=== PATIENT | male | born 1990 | race Caucasian/White ===

== ENCOUNTER 2017-06-17 18:21 | Emergency (ER) | payer MEDICAID ==
[~2017-06-17] VITALS: Ht 182.9 cm; Wt 81.6 kg
[~2017-06-17 18:21] MED LIST: ALPR-429 PO; ALUM35SO4 TP; CHOL10005 PO; FLU60SYR30 IM ONLY; GABA-549 PO; HYDR25CA83 PO; LAMO200T46 PO; LEVO50TA86 PO; LORA-636 PO; LURA40TA3 PO; MULT-1379 PO; NIC10R INH; OMEG1CAP35 PO; VENL75CA58 PO
--- NOTE | 2017-06-17 18:25 | ER Report ---
History and Physical Time Seen By MD: 18:30 HPI/ROS CHIEF COMPLAINT: suicidal ideation, emergency care home. HISTORY OF PRESENT ILLNESS: This is a 27 year old male. He is intoxicated. He was at [facility] and was telling his counselor that he was suicidal. He has had a bottle of Vodka to drink today. History of intoxication frequently, but denies daily use. He denies drug use. History of suicide attempts x2 in the past, tried to slit wrists. Has thoughts of suicide daily. Emergency care home by [facility]. No current police hold, but chief compliance officer expected to interview the patient later. He denies current pain or medical problems. See below for medications. Denies any self injury today. REVIEW OF SYSTEMS: Respiratory: No cough, no dyspnea. Cardiovascular: No chest pain, no palpitations. Gastrointestinal: No vomiting, no abdominal pain. Genitourinary: No trouble urinating. Musculoskeletal: No musculoskeletal pain. Allergies: Coded Allergies: No Known Drug Allergies (Unverified , 06/17/17) Home Meds Active Scripts Levothyroxine Sodium (LEVOTHYROXINE SODIUM) 50 Mcg Tablet, 1 TAB PO QDAY, #90 TAB 0 Refills Prov:CONNIE JIMENEZ DNP, BRINE TANK OPERATOR-BC 01/28/17 Reported Medications Clonazepam (CLONAZEPAM) 1 Mg Tablet, 1 MG PO BID, #6 TAB 06/17/17 Lamotrigine (LAMICTAL) 200 Mg Tablet, 200 MG PO QAM 11/21/16 Discontinued Reported Medications Lorazepam (LORAZEPAM) 2 Mg Tablet, PO UNKNOWN 04/28/17 Reviewed Nurses Notes: Yes Hx Smoking: Yes Smoking Status: Current: Every Day Smoker Exposure to Second Hand Smoke?: Yes Hx Substance Use Disorder: No Hx Alcohol Use: Yes Constitutional Vital Sign - Last 24 Hours 06/17/17 06/17/17 06/17/17 06/17/17 18:22 18:25 18:30 18:45 Temp 97.9 Pulse 125 Resp 20 B/P (MAP) 127/92 127/92 (104) 140/96 (111) 125/82 (96) Pulse Ox 94 O2 Delivery Room Air 06/17/17 06/17/17 06/17/17 06/17/17 18:51 19:00 19:15 19:21 Pulse 123 119 B/P (MAP) 137/92 (107) 126/86 (99) Pulse Ox 94 93 06/17/17 06/17/17 06/17/17 19:30 19:45 20:00 B/P (MAP) 138/71 (93) 124/75 (91) 133/90 (104) Physical Exam General Appearance: The patient is alert, he is intoxicated. Eyes: Pupils equal and round no injection. ENT: Normal oral mucosa. Moist mucous membranes. Neck: Neck is supple and non tender. Respiratory: Chest is non tender, lungs are clear to auscultation. Cardiac: regular rate and rhythm Gastrointestinal: Abdomen is soft and non tender, no masses, bowel sounds normal. Musculoskeletal: Extremities have full range of motion. Skin: No rashes or lesions. DIFFERENTIAL DIAGNOSIS: After history and physical exam differential diagnosis was considered for suicidal ideation with emergency care home as noted. Medical Decision Making Data Points Result Diagram: 06/17/17 1843 06/17/17 1830 Laboratory Hematology Test 06/17/17 18:30 06/17/17 18:43 Urine Color Straw Urine Clarity Clear Urine pH 6.0 pH (4.8-9.5) Urine Specific Sycamore 1.004 Urine Protein Negative mg/dL (NEGATIVE) Urine Glucose (UA) Negative mg/dL (NEGATIVE) Urine Ketones Negative mg/dL (NEGATIVE) Urine Blood Negative (NEGATIVE) Urine Nitrite Negative (NEGATIVE) Urine Bilirubin Negative (NEGATIVE) Urine Urobilinogen Negative mg/dL (0.2-1.9) Urine Leukocyte Esterase Negative (NEGATIVE) Urine RBC None /HPF (0-2/HPF) Urine WBC <1 /HPF (0-5/HPF) Urine Squamous Epithelial Cells None /LPF (</=FEW) Urine Bacteria Negative /HPF (NONE-FEW) Urine Mucus None /HPF (NONE-FEW) Sodium Level 147 mmol/L (137-145) Potassium Level 3.9 mmol/L (3.5-5.0) Chloride Level 108 mmol/L (98-107) Carbon Dioxide Level 21 mmol/L (22-30) Blood Urea Nitrogen 10 mg/dl (9-21) Creatinine 0.90 mg/dl (0.66-1.25) Glomerular Filtration Rate Calc > 60.0 Random Glucose 85 mg/dl (75-110) Calcium Level 9.2 mg/dl (8.4-10.2) Magnesium Level 2.5 mg/dl (1.7-2.2) Total Bilirubin 0.4 mg/dl (0.2-1.3) Aspartate Amino Transf (AST/SGOT) 89 U/L (0-35) Alanine Aminotransferase (ALT/SGPT) 155 U/L (0-56) Alkaline Phosphatase 79 U/L (0-126) Total Protein 8.2 gm/dl (6.3-8.2) Albumin 4.8 g/dl (3.5-5.0) Salicylates Level < 10 mg/L Salicylate Last Dose Date unk Urine Opiates Screen Negative Acetaminophen Level < 10 ug/ml Urine Barbiturates Screen Negative Ur Tricyclic Antidepressants Screen Negative Urine Phencyclidine Screen Negative Urine Amphetamines Screen Negative Urine Benzodiazepines Screen Negative Urine Cocaine Screen Negative Urine Cannabinoids Screen Negative Serum Alcohol 296 mg/dl Red Blood Count 5.89 M/uL (4.00-5.60) Mean Corpuscular Volume 91.6 fL (80.0-96.0) Mean Corpuscular Hemoglobin 31.4 pg (26.0-33.0) Mean Corpuscular Hemoglobin Concent 34.3 g/dL (32.0-36.0) Red Cell Distribution Width 15.4 % (11.5-14.5) Mean Platelet Volume 7.3 fL (7.2-11.1) Neutrophils (%) (Auto) 53.6 % (39.4-72.5) Lymphocytes (%) (Auto) 36.3 % (17.6-49.6) Monocytes (%) (Auto) 8.4 % (4.1-12.4) Eosinophils (%) (Auto) 1.2 % (0.4-6.7) Basophils (%) (Auto) 0.5 % (0.3-1.4) Nucleated RBC Relative Count (auto) 0.3 /100WBC Neutrophils # (Auto) 4.2 K/uL (2.0-7.4) Lymphocytes # (Auto) 2.9 K/uL (1.3-3.6) Monocytes # (Auto) 0.7 K/uL (0.3-1.0) Eosinophils # (Auto) 0.1 K/uL (0.0-0.5) Basophils # (Auto) 0.0 K/uL (0.0-0.1) Nucleated RBC Absolute Count (auto) 0.02 K/uL Chemistry Test 06/17/17 18:30 06/17/17 18:43 Urine Color Straw Urine Clarity Clear Urine pH 6.0 pH (4.8-9.5) Urine Specific Sycamore 1.004 Urine Protein Negative mg/dL (NEGATIVE) Urine Glucose (UA) Negative mg/dL (NEGATIVE) Urine Ketones Negative mg/dL (NEGATIVE) Urine Blood Negative (NEGATIVE) Urine Nitrite Negative (NEGATIVE) Urine Bilirubin Negative (NEGATIVE) Urine Urobilinogen Negative mg/dL (0.2-1.9) Urine Leukocyte Esterase Negative (NEGATIVE) Urine RBC None /HPF (0-2/HPF) Urine WBC <1 /HPF (0-5/HPF) Urine Squamous Epithelial Cells None /LPF (</=FEW) Urine Bacteria Negative /HPF (NONE-FEW) Urine Mucus None /HPF (NONE-FEW) Glomerular Filtration Rate Calc > 60.0 Calcium Level 9.2 mg/dl (8.4-10.2) Magnesium Level 2.5 mg/dl (1.7-2.2) Total Bilirubin 0.4 mg/dl (0.2-1.3) Aspartate Amino Transf (AST/SGOT) 89 U/L (0-35) Alanine Aminotransferase (ALT/SGPT) 155 U/L (0-56) Alkaline Phosphatase 79 U/L (0-126) Total Protein 8.2 gm/dl (6.3-8.2) Albumin 4.8 g/dl (3.5-5.0) Salicylates Level < 10 mg/L Salicylate Last Dose Date unk Urine Opiates Screen Negative Acetaminophen Level < 10 ug/ml Urine Barbiturates Screen Negative Ur Tricyclic Antidepressants Screen Negative Urine Phencyclidine Screen Negative Urine Amphetamines Screen Negative Urine Benzodiazepines Screen Negative Urine Cocaine Screen Negative Urine Cannabinoids Screen Negative Serum Alcohol 296 mg/dl White Blood Count 7.9 k/uL (4.5-11.0) Red Blood Count 5.89 M/uL (4.00-5.60) Hemoglobin 18.5 g/dL (14.0-18.0) Hematocrit 53.9 % (42.0-52.0) Mean Corpuscular Volume 91.6 fL (80.0-96.0) Mean Corpuscular Hemoglobin 31.4 pg (26.0-33.0) Mean Corpuscular Hemoglobin Concent 34.3 g/dL (32.0-36.0) Red Cell Distribution Width 15.4 % (11.5-14.5) Platelet Count 180 K/uL (150-450) Mean Platelet Volume 7.3 fL (7.2-11.1) Neutrophils (%) (Auto) 53.6 % (39.4-72.5) Lymphocytes (%) (Auto) 36.3 % (17.6-49.6) Monocytes (%) (Auto) 8.4 % (4.1-12.4) Eosinophils (%) (Auto) 1.2 % (0.4-6.7) Basophils (%) (Auto) 0.5 % (0.3-1.4) Nucleated RBC Relative Count (auto) 0.3 /100WBC Neutrophils # (Auto) 4.2 K/uL (2.0-7.4) Lymphocytes # (Auto) 2.9 K/uL (1.3-3.6) Monocytes # (Auto) 0.7 K/uL (0.3-1.0) Eosinophils # (Auto) 0.1 K/uL (0.0-0.5) Basophils # (Auto) 0.0 K/uL (0.0-0.1) Nucleated RBC Absolute Count (auto) 0.02 K/uL Toxicology Test 06/17/17 18:30 Salicylates Level < 10 mg/L Salicylate Last Dose Date unk Urine Opiates Screen Negative Acetaminophen Level < 10 ug/ml Urine Barbiturates Screen Negative Ur Tricyclic Antidepressants Screen Negative Urine Phencyclidine Screen Negative Urine Amphetamines Screen Negative Urine Benzodiazepines Screen Negative Urine Cocaine Screen Negative Urine Cannabinoids Screen Negative Serum Alcohol 296 mg/dl Urinalysis Test 06/17/17 18:30 Urine Color Straw Urine Clarity Clear Urine pH 6.0 pH (4.8-9.5) Urine Specific [place] 1.004 Urine Protein Negative mg/dL (NEGATIVE) Urine Glucose (UA) Negative mg/dL (NEGATIVE) Urine Ketones Negative mg/dL (NEGATIVE) Urine Blood Negative (NEGATIVE) Urine Nitrite Negative (NEGATIVE) Urine Bilirubin Negative (NEGATIVE) Urine Urobilinogen Negative mg/dL (0.2-1.9) Urine Leukocyte Esterase Negative (NEGATIVE) Urine RBC None /HPF (0-2/HPF) Urine WBC <1 /HPF (0-5/HPF) Urine Squamous Epithelial Cells None /LPF (</=FEW) Urine Bacteria Negative /HPF (NONE-FEW) Urine Mucus None /HPF (NONE-FEW) ED Course/Re-evaluation ED Course Labs unremarkable other than mild liver function tests and elevated alcohol level. Decision to Disposition Date: Jun 17, 2017 Decision to Disposition Time: 20:05 Depart Departure Latest Vital Signs Vital Signs Date Time Temp Pulse Resp B/P (MAP) Pulse Ox O2 Delivery O2 Flow Rate FiO2 06/17/17 20:00 133/90 (104) 06/17/17 19:21 119 93 06/17/17 18:22 97.9 20 Room Air Impression: Primary Impression: Suicidal ideation Additional Impressions: History of suicide attempt Alcohol intoxication Condition: Condition Unchanged Disposition: XFER TO [facility] Referrals: NASH DAMON MD (PCP) Problem Qualifiers Additional Impressions: Alcohol intoxication Complication of substance-induced condition: uncomplicated Qualified Codes: F10.920 - Alcohol use, unspecified with intoxication, uncomplicated YANY PATINO MD Jun 17, 2017 18:26
[2017-06-17] MEDS ORDERED: CLON-303 PO (18:31)
[2017-06-17 19:23] LABS: PLATELET COUNT, AUTOMATED 180 K/uL (150-450)
--- NOTE | 2017-06-17 19:45 | BHS - Psychiatric Evaluation ---
ER - Title 25 MHE Evaluation Title 25 Evaluation Patient Detained By: Law Enforcement Referral Source: Patient and Law Enforcement Date Patient Detained: Jun 17, 2017 Time Patient Detained: 18:11 Date Mcfp Expires: Jun 22, 2017 Time Mcfp Expires: 18:11 Legal Status: Police Hold: No Legal Status: Residence: [facility] Resident, State Resident Assessment Data Provided By: Patient, Law Enforcement HPI/ROS: CHIEF COMPLAINT: suicidal ideation, emergency fci. HISTORY OF PRESENT ILLNESS: This is a 27 year old male. He is intoxicated. He was at [facility] and was telling his counselor that he was suicidal. He has had a bottle of Vodka to drink today. History of intoxication frequently, but denies daily use. He denies drug use. History of suicide attempts x2 in the past, tried to slit wrists. Has thoughts of suicide daily. Emergency fci by [facility]. No current police hold, but security vehicle patrol officer expected to interview the patient later. He denies current pain or medical problems. See below for medications. Denies any self injury today. REVIEW OF SYSTEMS: Respiratory: No cough, no dyspnea. Cardiovascular: No chest pain, no palpitations. Gastrointestinal: No vomiting, no abdominal pain. Genitourinary: No trouble urinating. Musculoskeletal: No musculoskeletal pain. Admit due to SI or Attempt: Yes Suicide Plan: Has Plan with Access Current Suicide Plan Slitting wrists Alcohol or Drugs Involved: Yes Is Patient Info Reliable: Yes Is Collateral Info Reliable: Yes Current Home Psych Meds: Clonazepam, Lamictal, levothyroxine, Latuda Mental Status Exam General Appearance: Unkept Speech: Slurred Mood: Dysthmic/Depressed Affect: Calm, Sad Thought Process: Other (intoxicated) Thought Content: Suicidal Ideation Sensorium: Other (intoxicated) Cognition: Alert & Oriented-Person, Alert & Oriented-Place, Alert & Oriented- Time, [id number] Memory: Immediate, Recent, Remote Insight Judgment: Poor Sleep: Hypersomnia Hallucinations: Denies Delusions: Denies Current Risk & History Current Dangerous Risk Assessm: Current Suicide Ideation Past Dangerous Risk Assessm: Suicide Ideation-last 6mo, Suicide Attempts-last 6mo Prior Alcohol/Drug Abuse Current alcohol abuse, denies drug use Previous Suicide Attempt: Past - High Lethality Number of Attempts/Description Twice attempted to slit wrists. Previous Psychiatric Illness: Yes Previous Psychiatric Treatment: Yes Risk Assessment & Disposition Evaluated Risk Assessment: Current suicidal ideation, past attempts, current intoxication Impression: Primary Impression: Suicidal ideation Additional Impressions: Alcohol intoxication History of suicide attempt Meets Mental Illness Req.: Yes Meets Dangerousness Req.: Yes Emergency Mcfp to be: Upheld Date of Decision: Jun 17, 2017 Time of Decision: 19:44 Patient is Medically Stable at: Yes Disposition: [facility] Problem Qualifiers Additional Impressions: Alcohol intoxication Complication of substance-induced condition: uncomplicated Qualified Codes: F10.920 - Alcohol use, unspecified with intoxication, uncomplicated YANY PATINO MD Jun 17, 2017 19:45
[2017-06-17 20:00] VITALS: BP 133/90
[2017-06-18] MEDS ORDERED: LUR80PT PO (09:17)
== END 2017-06-17 20:40 ==
LOC: ER 18:26
DX: R45.851 Suicidal ideations (principal); Z91.5 Personal history of self-harm; F10.920 Alcohol use, unspecified with intoxication, uncomplicated; R79.89 Other specified abnormal findings of blood chemistry; F17.200 Nicotine dependence, unspecified, uncomplicated
CPT/HCPCS: 36415; 80305; 81001; 83735; 84443; 85025; 99285; G0480; 80320; 80329; 82040; 82247; 82310; 82374; 82435; 82565; 82947; 84075; 84132; 84155; 84295; 84450; 84460; 84520

== ENCOUNTER 2017-06-17 20:09 | Inpatient (IN) | payer MEDICAID ==
[~2017-06-17] VITALS: Ht 182.9 cm; Wt 80.7 kg
[~2017-06-17 20:09] MED LIST changes: +CLON-303 PO
[2017-06-17] MEDS ORDERED: DIAZEPAM 10 MG TAB PO PRN (21:25)
[2017-06-17 22:48] VITALS: BP 140/90
[2017-06-18 02:51] VITALS: BP 124/78
[2017-06-18 08:15] VITALS: BP 126/82
[2017-06-18] MEDS ORDERED: NICOTINE INH SYSTEM 10 MG/INH INH PRN (08:20)
[2017-06-18] MEDS ORDERED: NICOTINE CARTRIDGE 1 EA PO PRN (08:20)
[2017-06-18] MEDS: CHOLECALCIFEROL 1000 UNIT TAB PO SCH (08:36)
[2017-06-18] MEDS: FOLIC ACID 1 MG TAB PO SCH (08:36)
[2017-06-18] MEDS: OMEGA-3 500 MG CAP PO SCH (08:36)
[2017-06-18] MEDS: MULTIVITAMINS PO SCH (08:36)
[2017-06-18] MEDS: THIAMINE HCL 100 MG TAB PO SCH (08:36)
[2017-06-18] MEDS ORDERED: LUR80PT PO (09:17)
[2017-06-18] MEDS: lamoTRIgine 100 MG TAB PO SCH (10:27)
[2017-06-18] MEDS: LEVOTHYROXINE SOD 0.05 MG TAB PO SCH (10:27)
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
[2017-06-18] MEDS ORDERED: LURASIDONE 40 MG TAB PO SCH (21:00)
[2017-06-19] MEDS: LEVOTHYROXINE SOD 0.05 MG TAB PO SCH (06:07)
[2017-06-19 06:11] VITALS: BP 102/60
[2017-06-19] MEDS: lamoTRIgine 100 MG TAB PO SCH (08:01)
[2017-06-19] MEDS: OMEGA-3 500 MG CAP PO SCH (08:01)
[2017-06-19] MEDS: CHOLECALCIFEROL 1000 UNIT TAB PO SCH (08:01)
[2017-06-19] MEDS: MULTIVITAMINS PO SCH (08:01)
[2017-06-19] MEDS: FOLIC ACID 1 MG TAB PO SCH (08:01)
[2017-06-19] MEDS: THIAMINE HCL 100 MG TAB PO SCH (08:01)
[2017-06-19] MEDS: NICOTINE 21 MG/24 HR PATCH TD SCH (08:04)
[2017-06-19] MEDS ORDERED: lamoTRIgine 25 MG TAB PO ONE (10:05)
--- NOTE | 2017-06-19 13:39 | BHS Progress Note ---
BHS - Subjective Progress Notes Subjective Pt seen with team. Pt feeling a little better today a little less depressed, but still very worried about what is going to happen legally. He says this is actually his 3rd probation violation. We did some talking about the possibility /probability that he will have to spend some time in intermediate. Pointed out to pt that during his last hospital stay he had not been truthful with us about his history of alcohol abuse, talked about the denial, the lies, that alcoholism breeds. He expresses genuine desire for help with sobriety, says he found AA to be a very helpful program in the past. Fears that if he goes to intermediate he will not be able to work on sobriety in a meaningful way. Discussed ways to not let that happen. Pt acknowledging that over past several months his schizoaffective symptoms have only been in partial remission. He does feel that lamictal and latuda have helped, but does still hear voices, as recently as two weeks ago, and also reports a moderate level of depression over past few months as well. Agrees to increase doses of lamictal and latuda for these symptoms. Also discussed the need to avoid benzos altogether since they are likely to destabilize his alcohol recovery. Suicidal Ideation: None Homicidal Ideation: None BHS - Objective Physical Exam Vital Signs Vital Signs 06/18/17 06/19/17 08:15 06:11 Temp 97.0 Pulse 97 Resp 16 B/P (MAP) 102/60 (74) Pulse Ox 100 O2 Delivery Room Air Muscle Strength and Tone: WNL Gait and Station: Steady BHS Medications Reviewed: Side Effects, Benefits of Medication, Risks Allergies Reviewed: Yes Mental Status Exam General Appearance: Casual, Well Groomed, Cooperative, Polite, Good Interaction Speech: Clear, Spontaneous, Normal Rate, Normal Rhythm, Normal Volume, Normal Tone Mood: Dysthmic/Depressed Affect: Calm, Sad, Anxious Thought Process: Organized, Logical, Goal Directed Thought Content: No Suicidal Ideation, No Homicidal Ideation, No Delusions, No Auditory Halllucinations, No Visual Hallucinations, No Thought Broadcasting, No Ideas of Reference, No Obsessions, No Compulsions, No Other Sensorium: Clear Cognition: Alert & Oriented-Person, Alert & Oriented-Place, Alert & Oriented- Time, Itbnk-Wnpnuluq-[id number] Memory: Immediate, Recent, Remote Intelligence: Average Insight Judgment: Fair (ongoing impairment due to alcoholism) [facility] Assessment and Plan Wcbp-bl-[id number] Encounter Date: Jun 19, 2017 Ocuf-tb-Ybby Encounter Time: 11:00 [facility] Plan: Admit to Unit, Necessary Precautions, Individual/Group Therapy, Admin /Titrate Meds, Educate Patient Tobacco Medications: Started Problems: (1) Schizoaffective disorder, bipolar type Status: Chronic Assessment & Plan: Increase latuda and lamictal doses today (2) Autism spectrum disorder Status: Chronic (3) Alcohol intoxication Status: Acute Assessment & Plan: CIWA monitored last night. No signs of withdrawal, and history not c/w physical dependence. DC CIWA today. (4) Suicidal ideation Status: Acute (5) Alcohol use disorder, moderate, dependence ZHANNA PEARL MD Jun 19, 2017 13:39
[2017-06-19] MEDS ORDERED: LURASIDONE 40 MG TAB PO SCH (21:00)
[2017-06-20] MEDS: LEVOTHYROXINE SOD 0.05 MG TAB PO SCH (05:23)
[2017-06-20 05:31] VITALS: BP 102/74
[2017-06-20] MEDS: OMEGA-3 500 MG CAP PO SCH (08:02)
[2017-06-20] MEDS: MULTIVITAMINS PO SCH (08:02)
[2017-06-20] MEDS: THIAMINE HCL 100 MG TAB PO SCH (08:02)
[2017-06-20] MEDS: CHOLECALCIFEROL 1000 UNIT TAB PO SCH (08:02)
[2017-06-20] MEDS: FOLIC ACID 1 MG TAB PO SCH (08:02)
[2017-06-20] MEDS: NICOTINE 21 MG/24 HR PATCH TD SCH (08:03)
[2017-06-20] MEDS ORDERED: lamoTRIgine 100 MG TAB PO SCH (09:00)
--- NOTE | 2017-06-20 15:46 | BHS Discharge Summary ---
[facility] Discharge Summary Oymm-or-Mevz Encounter Date: Jun 20, 2017 Donc-wu-Vwci Encounter Time: 11:00 Reason-Hosp/Final Diag (DSM-V): (1) Schizoaffective disorder, bipolar type Status: Chronic Hospital Course & Plan: Pt was admitted to [facility] and maintained on suicide precautions. Pt denied SI throughout his hospital stay. Pt reported that over this past Fall he had been moderately depressed, also reported intermittent auditory hallucinations and paranoia. Therefore his latuda was increased to 120mg daily, and lamictal was increased to 250mg daily. Pt was counseled about risks of use of benzos, given that he has alcohol use disorder. Pt was cooperative and active in all groups and individual sessions. Pt seems genuine in his desire to get back into a recovery lifestyle, including regular AA meetings, which he found helpful in the past. We talked quite a bit about the likely possibility that he will be spending some time in residential because of his police hold due to third violation of probation. Pt seemed resigned to that, and says that he wants to move away from [place] once all of these legal entanglements are resolved, to stat a new life for himself. Pt's parents visited and pt says they are very supportive and understand the circumstances and the possible residential time he is facing. By day of discharge he was free of suicidal ideation, his mood was brighter and he was considered safe for discharge into custody of police. (2) Autism spectrum disorder Status: Chronic (3) Alcohol intoxication Status: Acute Hospital Course & Plan: CIWA monitored last night. No signs of withdrawal, and history not c/w physical dependence. DC CIWA today. (4) Suicidal ideation Status: Acute (5) Alcohol use disorder, moderate, dependence Physical Exam Latest Vital Signs Vital Signs 06/18/17 06/20/17 08:15 05:31 Temp 97.8 Pulse 75 Resp 16 B/P (MAP) 102/74 (83) Pulse Ox 96 O2 Delivery Room Air Mental Status Exam General Appearance: Casual, Well Groomed, Good Eye Contact, Cooperative, Polite , Good Interaction Speech: Clear, Spontaneous, Normal Rate, Normal Rhythm, Normal Volume, Normal Tone Mood: Euthymic Affect: Full and Appropriate, Calm Thought Process: Organized, Logical, Goal Directed Thought Content: No Suicidal Ideation, No Homicidal Ideation, No Delusions, No Auditory Halllucinations, No Visual Hallucinations, No Thought Broadcasting, No Ideas of Reference, No Obsessions, No Compulsions, No Other Sensorium: Clear Cognition: Alert & Oriented-Person, Alert & Oriented-Place, Alert & Oriented- Time, Gykwx-Morfhdwd-Jkzxixmji Memory: Immediate, Recent, Remote Intelligence: Average Insight Judgment: Good Departure Condition: Improved Discharge to: Other Facility Discharge Instructions Home Meds Active Scripts Levothyroxine Sodium (LEVOTHYROXINE SODIUM) 50 Mcg Tablet, 1 TAB PO QDAY, #90 TAB 0 Refills Prov:CONNIE JIMENEZ DNP, RN [facility] 01/28/17 Reported Medications Lurasidone (LATUDA) 80 Mg Tab, 120 MG PO QDAY, TAB 06/18/17 Lamotrigine (LAMICTAL) 200 Mg Tablet, 250 MG PO QAM 11/21/16 Discontinued Reported Medications Clonazepam (CLONAZEPAM) 1 Mg Tablet, 1 MG PO BID, #6 TAB 06/17/17 Lorazepam (LORAZEPAM) 2 Mg Tablet, PO UNKNOWN 04/28/17 Diet: Regular Activity: As Tolerated Special Instructions: Discharge to care of police. Follow up with outpatient therapy and medication management. ZHANNA PEARL MD Jun 20, 2017 15:46
== END 2017-06-20 12:55 | DRG 885 ==
LOC: BHS 20:09
PROVIDERS: ADMIT Psychiatry & Neurology Psychiatry; ATTEND Psychiatry & Neurology Psychiatry
DX: F25.0 Schizoaffective disorder, bipolar type (principal); R45.851 Suicidal ideations; F84.0 Autistic disorder; F10.220 Alcohol dependence with intoxication, uncomplicated; Y90.8 Blood alcohol level of 240 mg/100 ml or more; Z81.8 Family history of other mental and behavioral disorders; Z91.5 Personal history of self-harm
CPT/HCPCS: 90853

== ENCOUNTER 2017-09-11 19:08 | Emergency (ER) | payer MEDICAID, OTHER ==
[~2017-09-11 19:08] MED LIST changes: +LUR80PT PO
--- NOTE | 2017-09-11 19:12 | ER Report ---
History and Physical Time Seen By MD: 19:12 HPI/ROS CHIEF COMPLAINT: Suicidal ideation HISTORY OF PRESENT ILLNESS: 27-year-old male brought in by police on an emergency retirement with suicidal ideation. Patient is a long history of depression and to [facility] The last one was in June of this year and then October 2016. Patient has a long history of psychiatric admissions. Patient is seeing Dr. isabela montgomery in [place]. He sees a counselor here [facility]. He was seen a few days ago and prescribed Klonopin. Patient states he stopped taking those. Patient And his mother that he didn't feel safe tonight and that he might be something to harm himself. She called the police to go evaluate him. He expressed to the police that have been searching on the Internet the quantity of Klonopin that he would need to take the overdose and kill himself. Police, therefore, placed on emergency retirement on him and brought him to the emergency department. Patient denies drug or alcohol ingestion. He states he's been compliant on his Latuda and lamotrigine. REVIEW OF SYSTEMS: Respiratory: No cough, no dyspnea. Cardiovascular: No chest pain, no palpitations. Gastrointestinal: No vomiting, no abdominal pain. Musculoskeletal: No back pain. Allergies: Coded Allergies: No Known Drug Allergies (Unverified , 09/11/17) Home Meds Active Scripts Levothyroxine Sodium (LEVOTHYROXINE SODIUM) 50 Mcg Tablet, 1 TAB PO QDAY, #90 TAB 0 Refills Prov:CONNIE JIMENEZ DNP, COURT [employer]STRA[employer]-BC 01/28/17 Reported Medications Lurasidone (LATUDA) 80 Mg Tab, 80 MG PO QDAY, TAB 06/18/17 Lamotrigine (LAMICTAL) 200 Mg Tablet, 200 MG PO QAM 11/21/16 Past Medical/Surgical History Schizoaffective disorder, bipolar type, previous suicidal attempts by self cutting maneuver is psychiatric admissions Reviewed Nurses Notes: Yes Old Medical Records Reviewed: Yes Hx Smoking: Yes Smoking Status: Current: Every Day Smoker Exposure to Second Hand Smoke?: Yes Hx Substance Use Disorder: No Hx Alcohol Use: Yes Constitutional Vital Sign - Last 24 Hours 09/11/17 09/11/17 09/11/17 19:09 19:09 20:51 Temp 98.6 Pulse 95 84 Resp 16 B/P (MAP) 134/80 (98) 134/80 129/82 (98) Pulse Ox 96 97 O2 Delivery Room Air Physical Exam General Appearance: The patient is alert, has no immediate need for airway protection and no current signs of toxicity. Cooperative and pleasant, HEENT: Pupils equal and round no injection. Oral pharynx without redness or exudate, mucous membranes are moist Respiratory: Chest is non tender, lungs are clear to auscultation. Cardiac: regular rate and rhythm Gastrointestinal: Abdomen is soft and non tender, no masses, bowel sounds normal. Musculoskeletal: Neck: Neck is supple and non tender. Extremities have full range of motion and are non tender. Skin: No rashes or lesions. DIFFERENTIAL DIAGNOSIS: After history and physical exam differential diagnosis was considered for depression including functional and major depression, situational depression, medication side effect, drugs and alcohol abuse. Medical Decision Making Data Points Result Diagram: 09/11/17193409/11/171934 Laboratory Hematology Test 09/11/17 19:30 09/11/17 19:35 Urine Color Yellow Urine Clarity Clear Urine pH 5.0 pH (4.8-9.5) Urine Specific [place] 1.020 Urine Protein Negative mg/dL (NEGATIVE) Urine Glucose (UA) Negative mg/dL (NEGATIVE) Urine Ketones Negative mg/dL (NEGATIVE) Urine Blood Negative (NEGATIVE) Urine Nitrite Negative (NEGATIVE) Urine Bilirubin Negative (NEGATIVE) Urine Urobilinogen 2.0 mg/dL (0.2-1.9) Urine Leukocyte Esterase Negative (NEGATIVE) Urine RBC <1 /HPF (0-2/HPF) Urine WBC <1 /HPF (0-5/HPF) Urine Squamous Epithelial Cells None /LPF (</=FEW) Urine Bacteria Negative /HPF (NONE-FEW) Urine Mucus Few /HPF (NONE-FEW) Urine Opiates Screen Negative Urine Barbiturates Screen Negative Ur Tricyclic Antidepressants Screen Negative Urine Phencyclidine Screen Negative Urine Amphetamines Screen Negative Urine Benzodiazepines Screen Negative Urine Cocaine Screen Negative Urine Cannabinoids Screen Negative Red Blood Count 5.53 M/uL (4.00-5.60) Mean Corpuscular Volume 88.9 fL (80.0-96.0) Mean Corpuscular Hemoglobin 31.1 pg (26.0-33.0) Mean Corpuscular Hemoglobin Concent 35.0 g/dL (32.0-36.0) Red Cell Distribution Width 13.2 % (11.5-14.5) Mean Platelet Volume 7.6 fL (7.2-11.1) Neutrophils (%) (Auto) 44.8 % (39.4-72.5) Lymphocytes (%) (Auto) 42.7 % (17.6-49.6) Monocytes (%) (Auto) 11.9 % (4.1-12.4) Eosinophils (%) (Auto) 0.0 % (0.4-6.7) Basophils (%) (Auto) 0.6 % (0.3-1.4) Nucleated RBC Relative Count (auto) 0.1 /100WBC Neutrophils # (Auto) 3.5 K/uL (2.0-7.4) Lymphocytes # (Auto) 3.3 K/uL (1.3-3.6) Monocytes # (Auto) 0.9 K/uL (0.3-1.0) Eosinophils # (Auto) 0.0 K/uL (0.0-0.5) Basophils # (Auto) 0.0 K/uL (0.0-0.1) Nucleated RBC Absolute Count (auto) 0.01 K/uL Sodium Level 141 mmol/L (137-145) Potassium Level 4.0 mmol/L (3.5-5.0) Chloride Level 103 mmol/L (98-107) Carbon Dioxide Level 25 mmol/L (22-30) Blood Urea Nitrogen 12 mg/dl (9-21) Creatinine 0.90 mg/dl (0.66-1.25) Glomerular Filtration Rate Calc > 60.0 Random Glucose 103 mg/dl (75-110) Calcium Level 9.1 mg/dl (8.4-10.2) Magnesium Level 2.1 mg/dl (1.7-2.2) Total Bilirubin 0.5 mg/dl (0.2-1.3) Aspartate Amino Transf (AST/SGOT) 66 U/L (0-35) Alanine Aminotransferase (ALT/SGPT) 243 U/L (0-56) Alkaline Phosphatase 81 U/L (0-126) Total Protein 7.1 gm/dl (6.3-8.2) Albumin 4.1 g/dl (3.5-5.0) Salicylates Level < 10 mg/L Salicylate Last Dose Date unk Acetaminophen Level < 10 ug/ml Serum Alcohol < 10 mg/dl Chemistry Test 09/11/17 19:30 09/11/17 19:35 Urine Color Yellow Urine Clarity Clear Urine pH 5.0 pH (4.8-9.5) Urine Specific [place] 1.020 Urine Protein Negative mg/dL (NEGATIVE) Urine Glucose (UA) Negative mg/dL (NEGATIVE) Urine Ketones Negative mg/dL (NEGATIVE) Urine Blood Negative (NEGATIVE) Urine Nitrite Negative (NEGATIVE) Urine Bilirubin Negative (NEGATIVE) Urine Urobilinogen 2.0 mg/dL (0.2-1.9) Urine Leukocyte Esterase Negative (NEGATIVE) Urine RBC <1 /HPF (0-2/HPF) Urine WBC <1 /HPF (0-5/HPF) Urine Squamous Epithelial Cells None /LPF (</=FEW) Urine Bacteria Negative /HPF (NONE-FEW) Urine Mucus Few /HPF (NONE-FEW) Urine Opiates Screen Negative Urine Barbiturates Screen Negative Ur Tricyclic Antidepressants Screen Negative Urine Phencyclidine Screen Negative Urine Amphetamines Screen Negative Urine Benzodiazepines Screen Negative Urine Cocaine Screen Negative Urine Cannabinoids Screen Negative White Blood Count 7.7 k/uL (4.5-11.0) Red Blood Count 5.53 M/uL (4.00-5.60) Hemoglobin 17.2 g/dL (14.0-18.0) Hematocrit 49.2 % (42.0-52.0) Mean Corpuscular Volume 88.9 fL (80.0-96.0) Mean Corpuscular Hemoglobin 31.1 pg (26.0-33.0) Mean Corpuscular Hemoglobin Concent 35.0 g/dL (32.0-36.0) Red Cell Distribution Width 13.2 % (11.5-14.5) Platelet Count 229 K/uL (150-450) Mean Platelet Volume 7.6 fL (7.2-11.1) Neutrophils (%) (Auto) 44.8 % (39.4-72.5) Lymphocytes (%) (Auto) 42.7 % (17.6-49.6) Monocytes (%) (Auto) 11.9 % (4.1-12.4) Eosinophils (%) (Auto) 0.0 % (0.4-6.7) Basophils (%) (Auto) 0.6 % (0.3-1.4) Nucleated RBC Relative Count (auto) 0.1 /100WBC Neutrophils # (Auto) 3.5 K/uL (2.0-7.4) Lymphocytes # (Auto) 3.3 K/uL (1.3-3.6) Monocytes # (Auto) 0.9 K/uL (0.3-1.0) Eosinophils # (Auto) 0.0 K/uL (0.0-0.5) Basophils # (Auto) 0.0 K/uL (0.0-0.1) Nucleated RBC Absolute Count (auto) 0.01 K/uL Glomerular Filtration Rate Calc > 60.0 Calcium Level 9.1 mg/dl (8.4-10.2) Magnesium Level 2.1 mg/dl (1.7-2.2) Total Bilirubin 0.5 mg/dl (0.2-1.3) Aspartate Amino Transf (AST/SGOT) 66 U/L (0-35) Alanine Aminotransferase (ALT/SGPT) 243 U/L (0-56) Alkaline Phosphatase 81 U/L (0-126) Total Protein 7.1 gm/dl (6.3-8.2) Albumin 4.1 g/dl (3.5-5.0) Salicylates Level < 10 mg/L Salicylate Last Dose Date unk Acetaminophen Level < 10 ug/ml Serum Alcohol < 10 mg/dl Toxicology Test 09/11/17 19:30 09/11/17 19:35 Urine Opiates Screen Negative Urine Barbiturates Screen Negative Ur Tricyclic Antidepressants Screen Negative Urine Phencyclidine Screen Negative Urine Amphetamines Screen Negative Urine Benzodiazepines Screen Negative Urine Cocaine Screen Negative Urine Cannabinoids Screen Negative Salicylates Level < 10 mg/L Salicylate Last Dose Date unk Acetaminophen Level < 10 ug/ml Serum Alcohol < 10 mg/dl Urinalysis Test 09/11/17 19:30 Urine Color Yellow Urine Clarity Clear Urine pH 5.0 pH (4.8-9.5) Urine Specific [place] 1.020 Urine Protein Negative mg/dL (NEGATIVE) Urine Glucose (UA) Negative mg/dL (NEGATIVE) Urine Ketones Negative mg/dL (NEGATIVE) Urine Blood Negative (NEGATIVE) Urine Nitrite Negative (NEGATIVE) Urine Bilirubin Negative (NEGATIVE) Urine Urobilinogen 2.0 mg/dL (0.2-1.9) Urine Leukocyte Esterase Negative (NEGATIVE) Urine RBC <1 /HPF (0-2/HPF) Urine WBC <1 /HPF (0-5/HPF) Urine Squamous Epithelial Cells None /LPF (</=FEW) Urine Bacteria Negative /HPF (NONE-FEW) Urine Mucus Few /HPF (NONE-FEW) ED Course/Re-evaluation ED Course Patient was admitted to an examination room. H&P was done. The differential diagnoses was considered. Patient was placed on emergency retirement by adjunct professor of law. I have completed. The title 25 evaluation. Agree the patient needs to be held. He has high-risk behavior. He has a plan. He's been researching ways to kill himself. His diagnostic evaluation is unremarkable. 09/11/2017 8:23:18 pm case discussed with Anna Torrez nurse practitioner a behavioral health who accepts the patient for admission. Decision to Disposition Date: September 11, 2017 Decision to Disposition Time: 19:29 Depart Departure Latest Vital Signs Vital Signs Date Time Temp Pulse Resp B/P (MAP) Pulse Ox O2 Delivery O2 Flow Rate FiO2 09/11/17 20:51 84 129/82 (98) 97 09/11/17 19:09 98.6 16 Room Air Impression: Primary Impression: Depression with suicidal ideation Additional Impression: Schizoaffective disorder, bipolar type Condition: Improved Disposition: XFER [facility] Referrals: NASH DAMON MD (PCP) Title 25 Evaluation Date of Report: September 11, 2017 Examiner: Dr. Everardo Dickerson Patient Detained By: Law Enforcement 24hr Mental Health Eval By: Dr. Everardo Dickerson Date Patient Detained: September 11, 2017 Time Patient Detained: 19:03 Date Custodial Expires: September 16, 2017 Time Custodial Expires: 19:03 Legal Status: Police Hold: No Legal Status: Relationship: Single Legal Status: Residence: County Resident, State Resident Assessment Data Provided By: Patient, Law Enforcement, Other Source Chief Complaint: Suicidal ideation HPI/ROS: 27-year-old male with 2 previous psychiatric admissions here at [facility]. Patient's been diagnosed with schizoaffective disorder, bipolar type. Patient's mother called police to respond to his house after he was expressing suicidal ideation to her. On arrival officers question the patient and he admits that he's been searching on the Internet to take an overdose of Klonopin to kill himself. However, he denies suicidal ideation, as they began to detain him. Diagnosis: Schizoaffective disorder Depression with suicidal ideation Current Dangerous Risk Assess: Current Suicide Ideation Current Risk Summary: Patient is relatively high risk. The retirement will be upheld. Past Dangerous Risk Assess: Suicide Ideation-last 6mo, Suicide Attempts-last 6mo, Self-Injurious Behaviors Problem Qualifiers EVERARDO DICKERSON DO September 11, 2017 19:12
[2017-09-11 19:57] LABS: PLATELET COUNT, AUTOMATED 229 K/uL (150-450)
[2017-09-11 20:51] VITALS: BP 129/82
== END 2017-09-11 20:55 ==
LOC: ER 19:28
DX: F32.9 Major depressive disorder, single episode, unspecified (principal); R45.851 Suicidal ideations; F25.0 Schizoaffective disorder, bipolar type
CPT/HCPCS: 36415; 80305; 81001; 83735; 84443; 85025; 99285; G0480; 80320; 80329; 82040; 82247; 82310; 82374; 82435; 82565; 82947; 84075; 84132; 84155; 84295; 84450; 84460; 84520

== ENCOUNTER 2017-09-11 20:31 | Inpatient (IN) | payer MEDICAID, OTHER ==
[~2017-09-11] VITALS: Ht 172.7 cm; Wt 90.7 kg
[2017-09-11 21:10] VITALS: BP 110/72
[2017-09-11] MEDS ORDERED: MAG HYD/AL HYD/SIMETH 30ML UDC PO PRN (21:40)
[2017-09-11] MEDS: LURASIDONE 40 MG TAB PO SCH (22:07)
[2017-09-12] MEDS: LEVOTHYROXINE SOD 0.05 MG TAB PO SCH (06:18)
[2017-09-12 06:28] VITALS: BP 104/73
[2017-09-12 06:31] LABS: PLATELET COUNT, AUTOMATED 206 K/uL (150-450)
[2017-09-12] MEDS: MULTIVITAMINS PO SCH (08:22)
--- NOTE | 2017-09-12 16:08 | BHS - Psychiatric Evaluation ---
ER - Title 25 MHE Evaluation Title 25 Evaluation Patient Detained By: Physician (Dr. Everardo Dickerson), Law Enforcement (Officer Phani) Referral Source: Professional, Law Enforcement and ER Dr. Dickerson Date Patient Detained: September 11, 2017 Time Patient Detained: 19:08 Date Longterm Expires: September 16, 2017 Time Longterm Expires: 00:00 Legal Status: Police Hold: No Legal Status: Residence: [facility] Resident, State Resident Assessment Data Provided By: Patient, Law Enforcement, Other Source ([facility]/ [employer]) HPI/ROS: Per Dr. Everardo Dickerson ,"27-year-old male with 2 previous psychiatric admissions here at [facility]. Patient's been diagnosed with schizoaffective disorder, bipolar type. Patient's mother called police to respond to his house after he was expressing suicidal ideation to her. On arrival officers question the patient and he admits that he's been searching on the Internet to take an overdose of Klonopin to kill himself. However, he denies suicidal ideation, as they began to detain him." Admit due to SI or Attempt: Yes Suicide Plan: No Plan Current Suicide Plan Denied ideation as soon as officer began to detain him. Alcohol or Drugs Involved: No Is Patient Info Reliable: Yes Is Collateral Info Reliable: Yes (3-81 and patient's mother was concerned) Current Home Psych Meds: Latuda and Lamotrigine. Patient reports he is compliant on these medications. Mental Status Exam General Appearance: Casual, Well Groomed, Good Eye Contact Speech: Clear, Spontaneous, Normal Rate, Normal Rhythm, Normal Volume, Normal Tone Mood: Dysthmic/Depressed (Only slightly, says he is unhappy about being hospitalized) Affect: Calm Thought Process: Organized, Goal Directed Thought Content: Suicidal Ideation (Denies) Cognition: Alert & Oriented-Person, Alert & Oriented-Place, Alert & Oriented- Time Memory: Immediate Insight Judgment: Poor Hallucinations: Denies Delusions: Denies Current Risk & History Current Dangerous Risk Assessm: Current Suicide Ideation Past Dangerous Risk Assessm: Suicide Attempts-last 6mo (June hospitalization is of high significance. ) Prior Alcohol/Drug Abuse Patient has a history of drinking heavily. He is going to inpatient treatment in [place] at the end of this month. Sequelae of Substance Abuse: Patient is on probation. Previous Suicide Attempt: Past - High Lethality Previous Psychiatric Illness: Yes (Schizoaffective Disorder, Biploar Type Autism Spectrum Disorder) Previous Psychiatric Treatment: Yes Previous Treatment Description Patient has been detained for suicidal behaviors as recently as June of this year. Patient sees Montana Rubio at [facility] weekly. He reports this is a supportive relationship. Risk Assessment & Disposition Evaluated Risk Assessment: Risk is high, patient reportedly researching how to use a dangerous medication to overdose and kill himself. Patient has a history of psychiatric hospitalizations, suicidal ideation, substance abuse, and self harm. Patient said he was feeling depressed a day ago. Impression: Primary Impression: Depression with suicidal ideation Additional Impressions: Schizoaffective disorder, bipolar type Autism spectrum disorder Suicidal ideation Meets Mental Illness Req.: Yes Meets Dangerousness Req.: Yes Emergency Longterm to be: Upheld Decision Comment: Patient had been researching how to end his life, and says at that time he had felt depressed. His mood state came to his mother's attention and she called to alert Law Enforcement. Also patient says he no longer feels depressed or suicidal, it is important to evaluate him thoroughly for his safety and provide and provide him appropriate support. Patient has been detained here at [facility] before. Date of Decision: September 12, 2017 Time of Decision: 16:38 Patient is Medically Stable at: Yes Disposition: [facility] Problem Qualifiers DEAN RIVERA LPC September 12, 2017 16:08
[2017-09-12 18:30] VITALS: BP 124/60
[2017-09-12] MEDS ORDERED: DIAZEPAM 10 MG TAB PO ONE (20:15)
[2017-09-12] MEDS: LURASIDONE 40 MG TAB PO SCH (20:56)
[2017-09-12] MEDS ORDERED: LURASIDONE 40 MG TAB PO SCH (21:00)
[2017-09-13] MEDS: LEVOTHYROXINE SOD 0.05 MG TAB PO SCH (05:28)
[2017-09-13 05:33] VITALS: BP 114/74
[2017-09-13] MEDS: MULTIVITAMINS PO SCH (08:24)
[2017-09-13] MEDS: lamoTRIgine 100 MG TAB PO SCH (09:49)
[2017-09-13 10:10] VITALS: BP 126/80
--- NOTE | 2017-09-13 13:14 | BHS Progress Note ---
BHS - Subjective Progress Notes Subjective Patient calm today on the unit, stating that he was suicidal a few days ago, but not today, Patient desires to discharge to home. Patient has had a frequency of recent admissions with ongoing decompensation on an outpatient basis, involving relapses into alcohol use. Patient admits to abusing scripts of Klonopin. At this time will continue emergency detainment, and titrate medications. Patient with a history of decompensation, would benefit from continued structured living until entrance into rehab. Suicidal Ideation: Resolving Homicidal Ideation: None BHS - Objective Physical Exam Vital Signs Vital Signs Date Time Temp Pulse Resp B/P (MAP) Pulse Ox O2 Delivery O2 Flow Rate FiO2 09/13/17 10:10 98.6 75 126/80 (95) Room Air 09/13/17 05:33 15 96 Hematology Test 09/12/17 06:24 Red Blood Count 5.53 M/uL (4.00-5.60) Mean Corpuscular Volume 88.7 fL (80.0-96.0) Mean Corpuscular Hemoglobin 31.2 pg (26.0-33.0) Mean Corpuscular Hemoglobin Concent 35.2 g/dL (32.0-36.0) Red Cell Distribution Width 12.9 % (11.5-14.5) Mean Platelet Volume 7.3 fL (7.2-11.1) Neutrophils (%) (Auto) 41.1 % (39.4-72.5) Lymphocytes (%) (Auto) 43.5 % (17.6-49.6) Monocytes (%) (Auto) 14.8 % (4.1-12.4) Eosinophils (%) (Auto) 0.0 % (0.4-6.7) Basophils (%) (Auto) 0.6 % (0.3-1.4) Nucleated RBC Relative Count (auto) 0.1 /100WBC Neutrophils # (Auto) 2.3 K/uL (2.0-7.4) Lymphocytes # (Auto) 2.5 K/uL (1.3-3.6) Monocytes # (Auto) 0.8 K/uL (0.3-1.0) Eosinophils # (Auto) 0.0 K/uL (0.0-0.5) Basophils # (Auto) 0.0 K/uL (0.0-0.1) Nucleated RBC Absolute Count (auto) 0.00 K/uL Sodium Level 139 mmol/L (137-145) Potassium Level 4.2 mmol/L (3.5-5.0) Chloride Level 105 mmol/L (98-107) Carbon Dioxide Level 23 mmol/L (22-30) Blood Urea Nitrogen 14 mg/dl (9-21) Creatinine 1.00 mg/dl (0.66-1.25) Glomerular Filtration Rate Calc > 60.0 Random Glucose 91 mg/dl (75-110) Calcium Level 9.3 mg/dl (8.4-10.2) Total Bilirubin 0.9 mg/dl (0.2-1.3) Aspartate Amino Transf (AST/SGOT) 63 U/L (0-35) Alanine Aminotransferase (ALT/SGPT) 221 U/L (0-56) Alkaline Phosphatase 68 U/L (0-126) Total Protein 6.5 gm/dl (6.3-8.2) Albumin 3.6 g/dl (3.5-5.0) Chemistry Test 09/12/17 06:24 White Blood Count 5.7 k/uL (4.5-11.0) Red Blood Count 5.53 M/uL (4.00-5.60) Hemoglobin 17.3 g/dL (14.0-18.0) Hematocrit 49.1 % (42.0-52.0) Mean Corpuscular Volume 88.7 fL (80.0-96.0) Mean Corpuscular Hemoglobin 31.2 pg (26.0-33.0) Mean Corpuscular Hemoglobin Concent 35.2 g/dL (32.0-36.0) Red Cell Distribution Width 12.9 % (11.5-14.5) Platelet Count 206 K/uL (150-450) Mean Platelet Volume 7.3 fL (7.2-11.1) Neutrophils (%) (Auto) 41.1 % (39.4-72.5) Lymphocytes (%) (Auto) 43.5 % (17.6-49.6) Monocytes (%) (Auto) 14.8 % (4.1-12.4) Eosinophils (%) (Auto) 0.0 % (0.4-6.7) Basophils (%) (Auto) 0.6 % (0.3-1.4) Nucleated RBC Relative Count (auto) 0.1 /100WBC Neutrophils # (Auto) 2.3 K/uL (2.0-7.4) Lymphocytes # (Auto) 2.5 K/uL (1.3-3.6) Monocytes # (Auto) 0.8 K/uL (0.3-1.0) Eosinophils # (Auto) 0.0 K/uL (0.0-0.5) Basophils # (Auto) 0.0 K/uL (0.0-0.1) Nucleated RBC Absolute Count (auto) 0.00 K/uL Glomerular Filtration Rate Calc > 60.0 Calcium Level 9.3 mg/dl (8.4-10.2) Total Bilirubin 0.9 mg/dl (0.2-1.3) Aspartate Amino Transf (AST/SGOT) 63 U/L (0-35) Alanine Aminotransferase (ALT/SGPT) 221 U/L (0-56) Alkaline Phosphatase 68 U/L (0-126) Total Protein 6.5 gm/dl (6.3-8.2) Albumin 3.6 g/dl (3.5-5.0) Muscle Strength and Tone: WNL Gait and Station: Steady [facility] Medications Reviewed: Side Effects, Benefits of Medication, Risks Allergies Reviewed: Yes Mental Status Exam General Appearance: Casual, Well Groomed, Good Eye Contact, Cooperative, Polite , Good Interaction, No Unkept, No Tearful, No Psychomotor Agitation, No Psychomotor Retardation, Bizarre Mannerisms (stare), No Tics Speech: Clear, Spontaneous, Normal Rate, Normal Rhythm, Normal Volume, Normal Tone, No Delayed, No Slurred, No Garbled, No Rambling, No Inappropriate Mood: Dysthmic/Depressed (Only slightly, says he is unhappy about being hospitalized) Affect: Calm, Flat Thought Process: Organized, Logical, Goal Directed, No Loose Associations, No Flight of Ideas Thought Content: Suicidal Ideation (resolving), No Homicidal Ideation, No Delusions, No Auditory Halllucinations, No Visual Hallucinations, No Thought Broadcasting, No Ideas of Reference, No Obsessions, No Compulsions Cognition: Alert & Oriented-Person, Alert & Oriented-Place, Alert & Oriented- Time, [id number]-Agspwcpwd Memory: Immediate, Recent, Remote Intelligence: Average Insight Judgment: Poor Result Diagram: 09/12/1724 09/12/1724 [facility] Assessment and Plan [id number] Encounter Date: September 13, 2017 [id number] Encounter Time: 09:00 [facility] Plan: Admit to Unit, Necessary Precautions, Individual/Group Therapy, Admin /Titrate Meds, Educate Patient Tobacco Medications: Started Problems: (1) Sedative, hypnotic or anxiolytic use disorder, moderate, in controlled environment Status: Chronic (2) Alcohol use disorder, moderate, dependence Status: Chronic (3) Schizoaffective disorder, bipolar type Status: Chronic (4) Autism spectrum disorder Status: Chronic Condition 1. start lamictal at 100mg QAM. 2. Latuda 80mg QHS. 3. continue treatment. 4. patient in need if structured living until entrance into rehab. FERNANDO CHOE MD September 13, 2017 13:14
[2017-09-13] MEDS ORDERED: LURASIDONE 40 MG TAB PO SCH (21:00)
[2017-09-13 21:38] VITALS: BP 123/78
[2017-09-13] MEDS ORDERED: hydrOXYzine 25 MG TAB PO SCH (21:50)
[2017-09-13] MEDS ORDERED: hydrOXYzine PAMOATE 25 MG CAP PO SCH (22:00)
[2017-09-14] MEDS: LEVOTHYROXINE SOD 0.05 MG TAB PO SCH (05:42)
[2017-09-14 06:07] VITALS: BP 112/65
[2017-09-14] MEDS: lamoTRIgine 100 MG TAB PO SCH (08:09)
[2017-09-14] MEDS: MULTIVITAMINS PO SCH (08:09)
[2017-09-14] MEDS ORDERED: LAMO100T56 PO (09:36)
[2017-09-14] MEDS ORDERED: LUR80PT PO (09:36)
[2017-09-14] MEDS ORDERED: HYDR25CA83 PO (09:37)
[2017-09-14] MEDS ORDERED: MULT-1379 PO (09:39)
[2017-09-14] MEDS ORDERED: LEVO50TA80 PO (09:39)
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
--- NOTE | 2017-09-15 15:21 | DISCHARGE SUMMARY ---
DATE OF ADMISSION: September 11, 2017 DATE OF DISCHARGE: September 14, 2017 Patient was seen on the morning of 14 Sep 2017 at approximately 0900 hours. REASON FOR ADMISSION Please see H and P for full details. This 27-year-old male suffers from what appears to be some underlying autism spectrum disorder combined with schizoaffective disorder. Patient also having ongoing alcohol use disorder and freely admits to abusing prescribed benzodiazepines. Patient was admitted without incident from the Emergency Room. Please see H and P for full details. Patient did not experience any significant alcohol or benzodiazepine withdrawal. Patient was continued on current medication regimen. Patient admits, though, to not taking medications as prescribed on an outpatient basis. Patient had already previously signed up for entrance into residential rehab for alcohol and hypnotic abuse, specifically benzodiazepines. Patient took less than a fully active role in his treatment, but did remain cooperative on the unit. No parasuicidal or homicidal behavior was seen. Patient's condition improved, and it was thought that patient should reside in a structured living arrangement prior to entrance into rehab as risk of relapse was great. Patient was discharged to [facility]. He would be taken there by his mother where he would stay until entrance into residential rehab could be made. PHYSICAL EXAMINATION Please see emergency room note. Notable for: GENERAL: A 27-year-old male. No acute medical distress. VITAL SIGNS: At time of admission, temperature 98.6, pulse 95, respiratory rate 16, blood pressure 134/80, pulse oximetry 96% on room air. At time of discharge from [facility], vital signs showed temperature 98.8, pulse 74 , respiratory rate 15, blood pressure 112/65, and pulse oximetry 97 on room air. LABORATORY DATA TSH 0.55, in normal range. Toxicology screen negative with an undetectable serum alcohol level. Patient's urinalysis is unremarkable. Chemistry panel showed elevations of AST at 66 and ALT of 243; otherwise unremarkable. CBC was unremarkable. MENTAL STATUS EXAMINATION AT TIME OF DISCHARGE GENERAL APPEARANCE, BEHAVIOR, AND ATTITUDE: This is a well-groomed 27-year-old male, appears stated age. Patient having somewhat bizarre stare, but making fair to good eye contact overall. Patient having somewhat neutral appearance. No periods of tearfulness. No psychomotor agitation. SPEECH: Within normal limits. Regular rate, rhythm, volume, and tone. MOOD: Described as okay and improved. AFFECT: Neutral and appears somewhat baseline for this patient. THOUGHT PROCESSES: Logical, goal directed. Patient indicating a desire for continued entrance into residential rehab. No loose associations or flight of ideas could be detected. THOUGHT CONTENT: Free of auditory or visual hallucinations, ideas of reference , thought broadcasting, delusions, obsessions, compulsions. Patient adamantly denying suicidal or homicidal ideation. SENSORIUM: Clear. COGNITION: Alert and oriented to person, place, time, situation. MEMORY: Immediate, recent, and remote estimated intact. INTELLIGENCE: Average based on interview. INSIGHT AND JUDGMENT: Considered grossly intact and appropriate for entrance into [facility] to await residential treatment in the absence of alcohol or drug abuse. RESULTS OF TESTING IMAGING: None. LABORATORY DATA: See above. CONSULTATIONS None. TREATMENT Patient received medications, participated in individual and group therapy. HOSPITAL COURSE Patient appeared to take less than a fully active role in his treatment; however , patient remaining cooperative on the unit, agreeing to go to [facility] to await entrance into residential rehab. Patient continued to improve. No significant withdrawal from alcohol or benzodiazepines was noted. No parasuicidal behaviors while on the unit. CONDITION OF PATIENT ON DISCHARGE Stable, considered a minimal risk to himself or others in the absence of alcohol or prescription drug abuse. DISPOSITION Patient discharged to home in care of his mother who would take him to [facility]. Patient would follow up there and await entrance into residential rehab. Patient will remain on: 1. Latuda 80 mg at bedtime. 2. Lamictal 100 mg daily. 3. Synthroid 0.05 mg daily. 4. Multivitamin daily. 5. Vistaril one to two p.o. at bedtime and one p.o. q.6 hours p.r.n. for anxiety. Patient agreed to abstain from alcohol and all benzodiazepines or other drugs of abuse. Crisis line was given should symptoms return. Risks, benefits, and alternatives of above discharge plan were discussed. Informed consent was given to proceed with above discharge plan by this patient and patient's mother present at time of discharge. [facility]
== END 2017-09-14 13:05 | disposition home or self-care (01) | DRG 897 ==
LOC: BHS 20:31
PROVIDERS: ADMIT Nurse Practitioner Psychiatric/Mental Health; ATTEND Nurse Practitioner Psychiatric/Mental Health
DX: F13.10 Sedative, hypnotic or anxiolytic abuse, uncomplicated (principal); F84.0 Autistic disorder; R45.851 Suicidal ideations; F10.20 Alcohol dependence, uncomplicated; F25.0 Schizoaffective disorder, bipolar type; E03.9 Hypothyroidism, unspecified; Z91.5 Personal history of self-harm; Z86.19 Personal history of other infectious and parasitic diseases; Z81.8 Family history of other mental and behavioral disorders
CPT/HCPCS: 36415; 82040; 82247; 82310; 82374; 82435; 82565; 82947; 84075; 84132; 84155; 84295; 84450; 84460; 84520; 85025; 90853; Q0177

== ENCOUNTER 2018-07-28 07:14 | Inpatient (IN) | payer MEDICAID ==
[~2018-07-28] VITALS: Ht 180.3 cm; Wt 86.2 kg
[~2018-07-28 07:14] MED LIST changes: -BUSP10TA95 PO; -MELA10TA2 PO
[2018-07-28 07:38] VITALS: BP 135/84
[2018-07-28] MEDS ORDERED: MAG HYD/AL HYD/SIMETH 30ML UDC PO PRN (08:05)
[2018-07-28] MEDS ORDERED: NICOTINE CARTRIDGE 1 EA PO PRN (08:05)
[2018-07-28] MEDS ORDERED: ACETAMINOPHEN 325 MG TAB PO PRN (08:05)
[2018-07-28] MEDS: NICOTINE INH SYSTEM 10 MG/INH INH PRN ×3 (08:20→17:25)
[2018-07-28] MEDS: MULTIVITAMINS PO SCH (08:20)
[2018-07-28] MEDS ORDERED: busPIRone HCL 5 MG TAB PO ONE (17:20)
[2018-07-28] MEDS: OLANZapine 5 MG TAB PO SCH (20:53)
[2018-07-28] MEDS: busPIRone HCL 5 MG TAB PO SCH (20:54)
[2018-07-29 06:14] VITALS: BP 136/87
--- NOTE | 2018-07-29 06:47 | BHS Progress Note ---
[facility] - Subjective Progress Notes Subjective Manuel was seen this morning in treatment team along. His mother joined us by phone. Today, he rates his depression as 3/10 and denies any anxiety. He tolerated the Zyprexa 5 mgs well but is sleepy this morning. He admits that he typically drinks a couple of pots of coffee each day, so he is missing that. We focused on his need to have consistent outpatient care and I, again, emphasized the importance of having a prescriber who will work with him on medications that will address his psychotic symptoms. I said that my belief is that his persi stent voices and paranoia are driving his depression and unless we control these with an antipsychotic medication, he will continue to be depressed and at risk for suicide. I mentioned that additional medications may be necessary at some point, but the antipsychotic needs to be the starting point. I tried to reassure Manuel that while all these medications have side effects and some can be difficult to take, we can almost always find one or a combination that will control symptoms while being tolerable. I addressed the problems of follow-up. Manuel has not had consistent care. His mother agrees that this is the case. He needs to be working with a therapist and psychiatrist or other mental health prescriber who will communicate with one another in his benefit, be aware of the consequences of inadequate care, and aggressively pursue solutions for him. Manuel was complaining, on admission, of waking up with a feeling that he could not breathe. We did an overnight pulse oximetry. The results last night showed no oxygen desaturation. Suicidal Ideation: None Homicidal Ideation: None [facility] - Objective Physical Exam Muscle Strength and Tone: WNL Gait and Station: Steady [facility] Medications Reviewed: Side Effects, Benefits of Medication, Risks Allergies Reviewed: Yes Mental Status Exam General Appearance: Casual, Well Groomed, Good Eye Contact, Cooperative, Polite, Good Interaction Speech: Clear, Spontaneous, Normal Rate, Normal Rhythm, Normal Volume, Normal Tone Mood: Euthymic Affect: Anxious, Other (restricted) Thought Process: Organized, Logical, Goal Directed Thought Content: No Suicidal Ideation Sensorium: Clear Cognition: Alert & Oriented-Person, Alert & Oriented-Place, Alert & Oriented- Time, [id number] Memory: Immediate, Recent, Remote Intelligence: Above Average Insight Judgment: Good Lab Overnight pulse oximetry is not showing hypoxemia. [facility] Assessment and Plan [id number] Encounter Date: Jul 29, 2018 [id number] Encounter Time: 10:00 [facility] Plan: Admit to Unit, Necessary Precautions, Individual/Group Therapy, Admin/Titrate Meds, Educate Patient Tobacco Medications: Started Problems: (1) Schizoaffective disorder, bipolar type Status: Chronic (2) Suicidal ideation Status: Acute (3) History of suicide attempt Status: Acute (4) Alcohol use disorder, mild, in sustained remission Status: Resolved (5) Hepatitis C Status: Chronic (6) Benzodiazepine abuse in remission Status: Resolved (7) History of hypothyroidism Condition We will continue using Zyprexa for now. I would recommend advancing the dose as tolerated. If Carlos is too sedated or starts gaining too much weight, I would recommend trying Geodon twice daily. If this is not well tolerated, I might consider Risperdal. Latuda is also an option if it is dosed twice daily. Consideration should be given to Christo's metabolic profile and the possibility that he is a poor metabolizer of certain medications. I would avoid benzodiazepines in view of his history of abuse of them and fear of misuse again. MARTÍNEZ DIAZ DO Jul 29, 2018 06:47
[2018-07-29] MEDS: MULTIVITAMINS PO SCH (08:06)
[2018-07-29] MEDS: busPIRone HCL 5 MG TAB PO SCH ×3 (08:07→20:46)
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
[2018-07-29] MEDS ORDERED: HYPROMELLOSE 0.4% LUB 15ML BTL OU PRN (10:05)
[2018-07-29 12:35] VITALS: BP 132/68
[2018-07-29] MEDS ORDERED: BUSP10TA95 PO (15:55)
[2018-07-29] MEDS ORDERED: MELA10TA2 PO (15:55)
[2018-07-29] MEDS: NICOTINE INH SYSTEM 10 MG/INH INH PRN ×2 (16:30→20:36)
[2018-07-29] MEDS: OLANZapine 5 MG TAB PO SCH (20:45)
[2018-07-30 02:49] VITALS: BP 136/68
[2018-07-30] MEDS: MULTIVITAMINS PO SCH (08:42)
[2018-07-30] MEDS: busPIRone HCL 5 MG TAB PO SCH ×3 (08:42→20:51)
[2018-07-30] MEDS: NICOTINE INH SYSTEM 10 MG/INH INH PRN ×2 (08:44→18:28)
--- NOTE | 2018-07-30 09:16 | BHS Progress Note ---
S - Subjective Progress Notes Subjective I feel less paranoid since sleeping well. To me the most important thing is getting on an antipsychotic." Slept well with Olanzapine 5mg @ hs, doesn't feel overly sedated + paranoia although improved since admit, denies auditory/visual hallucinations Last auditory hallucinations "three days ago." Rating depression 2/10, no tearfulness, flat affect Denies anxiety nor anger History of Hep C, Hypothyroidism Reports recent brief relapse with cannabis 1 month ago History of heroin IV drug use, past abuse of etoh and Klonipin Denies suicidal ideation, last thoughts of hurting self "" Denies homicidal ideation Vitamin D 26, AST 71, ALT 96, inquires about Hep C treatment, has seen Dr. Ford Suicidal Ideation: None Homicidal Ideation: None [facility]HS - Objective Physical Exam Vital Signs Vital Signs Date Time Temp Pulse Resp B/P (MAP) Pulse Ox O2 Delivery O2 Flow Rate FiO2 07/30/18 02:49 98.0 79 136/68 (90) 96 Room Air 07/29/18 12:35 16 Allergies Coded Allergies No Known Drug Allergies (Unverified07/28/18) Muscle Strength and Tone: WNL Gait and Station: Steady [facility] Medications Reviewed: Side Effects, Benefits of Medication, Risks Allergies Reviewed: Yes Mental Status Exam General Appearance: Casual, Well Groomed, Good Eye Contact, Cooperative, Polite, Good Interaction Speech: Clear, Spontaneous, Normal Rate, Normal Rhythm, Normal Volume, Normal Tone Mood: Dysthmic/Depressed; No Euthymic (rating depression 2/10) Affect: Calm, Flat; No Anxious; Other (restricted) Thought Process: Organized, Logical, Goal Directed Thought Content: No Suicidal Ideation; Other (+ paranoia - improved since obtained quality sleep) Sensorium: Clear Cognition: Alert & Oriented-Person, Alert & Oriented-Place, Alert & Oriented- Time, Oxmjl-Jkepjdyl-Nvnrwulda Memory: Immediate, Recent, Remote Intelligence: Above Average Insight Judgment: Good Lab Medications (Trade) Dose Ordered Sig/He Route PRN Reason Start Time Stop Time Status Last Admin Dose Admin Buspirone HCl (Buspar 5 Mg Tab (Or Equiv)) 10 mg ONCE ONCE PO 07/28/18 17:20 07/28/18 17:22 DC 07/28/18 17:25 Miscellaneous Information (Nicotrol Cartridge) 1 each PRN PRN PO NICOTINE REPLACEMENT 07/28/18 08:05 08/27/18 08:04 07/28/18 08:20 Multivitamins (Thera-M Enhanced Tab (Or Equiv)) 1 each QDAY PO 07/28/18 09:00 08/27/18 08:59 07/30/18 08:42 Nicotine (Nicotrol Inhaler 10 Mg/Inh (Or Equiv)) 10 mg Q2H PRN INH NICOTINE REPLACEMENT 07/28/18 08:05 08/27/18 08:04 07/30/18 08:44 Olanzapine (zyPREXA (OR EQUIV)) 5 mg QHS PO 07/28/18 21:00 08/27/18 20:59 07/29/18 20:45 [facility] Assessment and Plan Rbui-iw-[id number] Encounter Date: Jul 30, 2018 Agbc-bz-Cpiv Encounter Time: 09:15 [facility] Plan: Admit to Unit, Necessary Precautions, Individual/Group Therapy, Admin/Titrate Meds, Educate Patient Tobacco Medications: Started Multpiple Antipsychotics Used: No Problems: (1) Schizoaffective disorder, bipolar type Status: Chronic (2) History of hypothyroidism Status: Chronic (3) Benzodiazepine abuse in remission Status: Resolved (4) Hepatitis C Status: Chronic Condition Continue Olanzapine 5mg po every pm targeting psychosis Vitamin D 2000 iu po daily, Vit D level 26 Will repeat chemistries Ongoing coordination of care with outpatient clinic [facility] Maintain precautions TOM ROBLES NP Jul 30, 2018 09:16
[2018-07-30] MEDS: CHOLECALCIFEROL 1000 UNIT TAB PO SCH (10:26)
[2018-07-30] MEDS ORDERED: INFLUENZA VIRUS VAC 0.5ML SYR IM ONLY ONE (11:40)
[2018-07-30 13:40] VITALS: BP 110/68
[2018-07-30] MEDS: OLANZapine 5 MG TAB PO SCH (20:51)
[2018-07-30] MEDS: traZODone HCL 50 MG TAB PO PRN (20:51)
[2018-07-31 06:14] VITALS: BP 126/79
[2018-07-31] MEDS: NICOTINE INH SYSTEM 10 MG/INH INH PRN ×3 (08:28→21:10)
[2018-07-31] MEDS: MULTIVITAMINS PO SCH (08:28)
[2018-07-31] MEDS: CHOLECALCIFEROL 1000 UNIT TAB PO SCH (08:28)
[2018-07-31] MEDS: busPIRone HCL 5 MG TAB PO SCH ×3 (08:28→21:09)
--- NOTE | 2018-07-31 13:02 | BHS Progress Note ---
[facility] - Subjective Progress Notes Subjective "I'm good. Is the plan still for me to leave tomorrow?" Client denies hallucinations. He denies suicidal thoughts, reporting last SI was last prior to admission. He denies problems with current medications. Reports sleeping well. Suicidal Ideation: None Homicidal Ideation: None [facility] - Objective Physical Exam Vital Signs Vital Signs Date Time Temp Pulse Resp B/P (MAP) Pulse Ox O2 Delivery O2 Flow Rate FiO2 07/31/18 06:14 97.9 74 15 126/79 (95) 97 Room Air Muscle Strength and Tone: WNL Gait and Station: Steady [facility] Medications Reviewed: Side Effects, Benefits of Medication, Risks Allergies Reviewed: Yes Mental Status Exam General Appearance: Casual, Well Groomed, Good Eye Contact, Cooperative, Polite, Good Interaction Speech: Clear, Spontaneous, Normal Rate, Normal Rhythm, Normal Volume, Normal Tone Mood: Dysthmic/Depressed; No Euthymic (rating depression 2/10) Affect: Calm, Flat; No Anxious; Other (restricted) Thought Process: Organized, Logical, Goal Directed Thought Content: No Suicidal Ideation, No Homicidal Ideation, No Auditory Halllucinations, No Visual Hallucinations, No Thought Broadcasting; Other (+ paranoia - improved since obtained quality sleep) Sensorium: Clear Cognition: Alert & Oriented-Person, Alert & Oriented-Place, Alert & Oriented- Time, Jjbmr-Qlmoldyx-Eqzxeelmw Memory: Immediate, Recent, Remote Intelligence: Average Insight Judgment: Good Result Diagram: 07/30/18 1033 [facility] Assessment and Plan Rcsa-tu-Pfxc Encounter Date: Jul 31, 2018 Ptoh-lx-Fjqj Encounter Time: 09:30 [facility] Plan: Admit to Unit, Necessary Precautions, Individual/Group Therapy, Admin/Titrate Meds, Educate Patient Tobacco Medications: Started Multpiple Antipsychotics Used: No Problems: (1) Schizoaffective disorder, bipolar type Status: Chronic Condition Client is reporting that he is doing well. Reports good sleep. Denies hallucinations. Denies suicidal thoughts. Reporting plan to follow up with previous outpatient providers upon discharge. Treatment team meeting is scheduled for the morning in order to discuss discharge planning. He denies acute needs today. NINO CARDENAS NP Jul 31, 2018 13:02
[2018-07-31 13:10] VITALS: BP 124/66
[2018-07-31 19:36] VITALS: BP 114/87
[2018-07-31] MEDS: traZODone HCL 50 MG TAB PO PRN (21:09)
[2018-07-31] MEDS: OLANZapine 5 MG TAB PO SCH (21:09)
[2018-08-01 06:35] VITALS: BP 119/76
[2018-08-01] MEDS: MULTIVITAMINS PO SCH (08:03)
[2018-08-01] MEDS: CHOLECALCIFEROL 1000 UNIT TAB PO SCH (08:03)
[2018-08-01] MEDS: busPIRone HCL 5 MG TAB PO SCH (08:03)
[2018-08-01] MEDS ORDERED: OLAN5TAB25 PO (10:32)
[2018-08-01] MEDS ORDERED: CHOL10005 PO (10:34)
[2018-08-01] MEDS ORDERED: NIC10R INH (10:35)
--- NOTE | 2018-08-01 17:02 | BHS Discharge Summary ---
[facility] Discharge Summary Ezvl-tc-Zfos Encounter Date: Aug 01, 2018 Blzj-gx-Hdbi Encounter Time: 11:00 Reason-Hosp/Final Diag (DSM-V): (1) Schizoaffective disorder, bipolar type Status: Chronic Hospital Course & Plan: HISTORY OF PRESENT ILLNESS I first met Christo shortly after admission on the morning of July 28 at about 9:30 a.m. He admitted that he had julian thinking about killing himself and that he brought himself to the emergency room because he felt a strong urge to cut his wrist, which he has done before. He was stressed by the fact that he has recently started a job at a local [employer] but felt that he was making too many mistakes. He complains, especially, that he constantly feels paranoid, that people are talking about him and this makes him anxious and depressed. He has been seriously suicidal for about three days but has been quite depressed for some time. Manuel has recently started seeing a provider at [facility] [place] (we do not know her last name) over the telemedicine system and he has seen her one time. He also has a therapist at [facility] here in [place] where he attends [facility]. CURRENT MEDICATIONS 1. BuSpar 10 mg three times daily. 2. Trazodone 50 mg 1/2 to 1 at night daily as needed for sleep. Christo stopped Lamictal about two months ago. HOSPITAL COURSE Pt was admitted to [facility] and maintained on suicide precautions. He was cooperative and attended all groups and individual therapies. We discussed his diagnosis of schizoaffective disorder and that it is important that he be maintained on antipsychotic medication-- his mother was present at on treatment team meeting when this was discussed as well. They both understood and agreed with recommendation, since risk of relapse to psychotic thinking and behavior is too great, given his significant history. Pt verbalized renewed commitment to participate in outpatient therapy and continue recommended medications. He was started on Zyprexa 5 mg q HS for paranoia, and this was well tolerated and effe ctive. We discussed that he may well require a higher dose if 5 mg alone does not control paranoia, but for now this was effective. He denied SI after his first hospital day. He will continue to follow up in the IOP program at [facility], with his individual therapist there and for medication management there as well. Physical Exam Latest Vital Signs Vital Signs 08/01/18 06:35 Temp 98.5 Pulse 76 Resp 15 B/P (MAP) 119/76 (90) Pulse Ox 96 O2 Delivery Room Air Mental Status Exam General Appearance: Casual, Well Groomed, Good Eye Contact, Cooperative, Polite, Good Interaction Speech: Clear, Spontaneous, Normal Rate, Normal Rhythm, Normal Volume, Normal Tone Mood: Euthymic Affect: Full and Appropriate, Calm Thought Process: Organized, Logical, Goal Directed Thought Content: No Suicidal Ideation, No Homicidal Ideation, No Delusions, No Auditory Halllucinations, No Visual Hallucinations, No Thought Broadcasting, No Ideas of Reference, No Obsessions, No Compulsions, No Other Sensorium: Clear Cognition: Alert & Oriented-Person, Alert & Oriented-Place, Alert & Oriented- Time, Jopfg-Bypbqtwb-Ldyxbmoaf Memory: Immediate, Recent, Remote Intelligence: Average Insight Judgment: Good Departure Result Diagram: 07/30/18 1033 Condition: Improved Discharge to: Home Discharge Instructions Home Meds Reported Medications Nicotine (NICOTROL) 10 Mg/Inh Ctr, 10 MG INH PRN PRN for NICOTINE REPLACEMENT 08/01/18 Cholecalciferol (Vitamin D3) (VITAMIN D3) 1,000 Unit Tablet, 2000 UNIT PO DAILY, TAB 08/01/18 Olanzapine (ZYPREXA) 5 Mg Tablet, 5 MG PO QHS 08/01/18 Buspirone Hcl (BUSPIRONE HCL) 10 Mg Tablet, 1 TAB PO TID 07/29/18 Trazodone Hcl (TRAZODONE HCL) 50 Mg Tablet, 25-50 MG PO QHS 07/28/18 Discontinued Reported Medications Melatonin (MELATONIN) 10 Mg Tablet, 1 TAB PO HS PRN for INSOMNIA 07/29/18 Buspirone Hcl (BUSPIRONE HCL) 5 Mg Tab, 10 MG PO TID, #20 TAB 07/28/18 Multivits,Th W-Fe,Other Min (THERA-M) 1 Each Tablet, 1 EACH PO QDAY 09/14/17 Levothyroxine Sodium (SYNTHROID) 50 Mcg Tablet, 50 MCG PO QAM, TAB 09/14/17 Hydroxyzine Pamoate (VISTARIL) 25 Mg Capsule, 25-50 MG PO QHS, CAPSULE TAKE 25-50 MG AT BEDTIME. YOU MAY ALSO TAKE EVERY SIX HOURS NEEDED FOR ANXIETY. 09/14/17 Lamotrigine (LAMICTAL) 100 Mg Tablet, 100 MG PO QAM 09/14/17 Lurasidone (LATUDA) 80 Mg Tab, 80 MG PO QHS, TAB 09/14/17 Multpiple Antipsychotics Used: No Diet: Regular Activity: As Tolerated Special Instructions: Discharge home. Follow-up with outpatient therapy and medication management. ABSTAIN FROM ALCOHOL AND ALL ILLICIT SUBSTANCES. Call crisis line or return to Emergency Room for return of suicidal or homicidal thoughts. ZHANNA PEARL MD Aug 01, 2018 17:02
== END 2018-08-01 10:45 | disposition home or self-care (01) | DRG 885 ==
LOC: BHS 07:14 → UNDOADMIN 07:14
PROVIDERS: ADMIT Student in an Organized Health Care Education/Training Program; ATTEND Student in an Organized Health Care Education/Training Program
DX: F25.0 Schizoaffective disorder, bipolar type (principal); R45.851 Suicidal ideations; F10.11 Alcohol abuse, in remission; F13.21 Sedative, hypnotic or anxiolytic dependence, in remission; Z23 Encounter for immunization; E03.9 Hypothyroidism, unspecified; K73.9 Chronic hepatitis, unspecified; Z91.5 Personal history of self-harm
CPT/HCPCS: 36415; 80305; 80320; 80329; 81001; 82040; 82247; 82310; 82374; 82435; 82565; 82947; 83735; 84075; 84132; 84155; 84295; 84443; 84450; 84460; 84520; 85025; 90471; 90674; 99284

== ENCOUNTER → 2018-07-28 | Emergency (ER) | payer MEDICAID, OTHER ==
[~2018-07-28] MED LIST changes: +BUS5 PO; +BUSP10TA95 PO; -CLON-303 PO; +CLON-333 PO; +LAMO100T56 PO; +LEVO50TA80 PO; +MELA10TA2 PO; +TRAZ50TA34 PO
--- NOTE | 2018-07-28 05:50 | ER Report ---
History and Physical Time Seen By MD: 05:50 (BOBBI DICKERSON DO) Time Seen By MD: 06:48 (ARELY ROLLINS DO) HPI/ROS CHIEF COMPLAINT: Suicidal ideation HISTORY OF PRESENT ILLNESS: 28-year-old male presents ambulatory to the ER complaining of suicidal ideation for the last 3 days. He's been having the urge to cut himself. Patient's been compliant on his medications as prescribed. Patient has previous admissions to [facility] 06/20 and 09/17 With with similar presentation. Patient has a history of alcohol abuse and benzodiazepine abuse. On previous admission. Patient denies any drug or alcohol use. Patient started a new job 3 days ago, which he thinks is his stressor that's aggravating his condition. REVIEW OF SYSTEMS: Respiratory: No cough, no dyspnea. Cardiovascular: No chest pain, no palpitations. Gastrointestinal: No vomiting, no abdominal pain. Musculoskeletal: No back pain. (BOBBI DICKERSON DO) HPI/ROS See Dr. Dickerson's note (ARELY ROLLINS DO) Allergies: Coded Allergies: No Known Drug Allergies (Unverified , 07/28/18) Home Meds Reported Medications Trazodone Hcl (TRAZODONE HCL) 50 Mg Tablet, 25-50 MG PO QHS 07/28/18 Buspirone Hcl (BUSPIRONE HCL) 5 Mg Tab, 10 MG PO TID, #20 TAB 07/28/18 Discontinued Reported Medications Multivits,Th W-Fe,Other Min (THERA-M) 1 Each Tablet, 1 EACH PO QDAY 09/14/17 Levothyroxine Sodium (SYNTHROID) 50 Mcg Tablet, 50 MCG PO QAM, TAB 09/14/17 Hydroxyzine Pamoate (VISTARIL) 25 Mg Capsule, 25-50 MG PO QHS, CAPSULE TAKE 25-50 MG AT BEDTIME. YOU MAY ALSO TAKE EVERY SIX HOURS NEEDED FOR ANXIETY. 09/14/17 Lamotrigine (LAMICTAL) 100 Mg Tablet, 100 MG PO QAM 09/14/17 Lurasidone (LATUDA) 80 Mg Tab, 80 MG PO QHS, TAB 09/14/17 Hx Smoking: Yes Smoking Status: Current: Every Day Smoker Exposure to Second Hand Smoke?: Yes Hx Substance Use Disorder: No Hx Alcohol Use: Yes (BOBBI DICKERSON DO) Constitutional Vital Sign - Last 24 Hours 07/28/18 07/28/18 07/28/18 07/28/18 05:52 05:54 06:00 06:16 Temp 98.0 Pulse 88 83 Resp 14 B/P (MAP) 146/88 146/88 (107) 146/86 (106) Pulse Ox 96 O2 Delivery Room Air (ARELY ROLLINS DO) Physical Exam General Appearance: The patient is alert, has no immediate need for airway protection and no current signs of toxicity. Vital signs stable, afebrile, pulse ox normal HEENT: Pupils equal and round no injection. TMs normal, oropharynx without redness or exudate, mucous members are moist Respiratory: Chest is non tender, lungs are clear to auscultation. Cardiac: regular rate and rhythm Gastrointestinal: Abdomen is soft and non tender, no masses, bowel sounds normal. Musculoskeletal: Neck: Neck is supple and non tender. Extremities have full range of motion and are non tender. Skin: No rashes or lesions. DIFFERENTIAL DIAGNOSIS: After history and physical exam differential diagnosis was considered for depression including functional and major depression, situational depression, medication side effect, suicidal ideation, suicidal attempt, drugs and alcohol abuse. (BOBBI DICKERSON DO) Physical Exam See Dr. Dickerson's note (ARELY ROLLINS DO) Medical Decision Making Data Points Result Diagram: 07/28/18 0603 07/28/18 0603 Laboratory Hematology Test 07/28/18 05:52 07/28/18 06:03 Urine Color Yellow Urine Clarity Clear Urine pH 6.0 pH (4.8-9.5) Urine Specific [place] 1.014 Urine Protein Negative mg/dL (NEGATIVE) Urine Glucose (UA) Negative mg/dL (NEGATIVE) Urine Ketones 20 mg/dL (NEGATIVE) Urine Blood Negative (NEGATIVE) Urine Nitrite Negative (NEGATIVE) Urine Bilirubin Negative (NEGATIVE) Urine Urobilinogen Negative mg/dL (0.2-1.9) Urine Leukocyte Esterase Negative (NEGATIVE) Urine RBC <1 /HPF (0-2/HPF) Urine WBC 1 /HPF (0-5/HPF) Urine Squamous Epithelial Cells None /LPF (</=FEW) Urine Bacteria Negative /HPF (NONE-FEW) Urine Mucus None /HPF (NONE-FEW) Urine Opiates Screen Negative Urine Barbiturates Screen Negative Ur Tricyclic Antidepressants Screen Negative Urine Phencyclidine Screen Negative Urine Amphetamines Screen Negative Urine Benzodiazepines Screen Negative Urine Cocaine Screen Negative Urine Cannabinoids Screen Negative Red Blood Count 5.49 M/uL (4.00-5.60) Mean Corpuscular Volume 89.3 fL (80.0-96.0) Mean Corpuscular Hemoglobin 31.2 pg (26.0-33.0) Mean Corpuscular Hemoglobin Concent 34.9 g/dL (32.0-36.0) Red Cell Distribution Width 14.1 % (11.5-14.5) Mean Platelet Volume 7.6 fL (7.2-11.1) Neutrophils (%) (Auto) 69.7 % (39.4-72.5) Lymphocytes (%) (Auto) 20.3 % (17.6-49.6) Monocytes (%) (Auto) 9.0 % (4.1-12.4) Eosinophils (%) (Auto) 0.2 % (0.4-6.7) Basophils (%) (Auto) 0.8 % (0.3-1.4) Nucleated RBC Relative Count (auto) 0.0 /100WBC Neutrophils # (Auto) 6.1 K/uL (2.0-7.4) Lymphocytes # (Auto) 1.8 K/uL (1.3-3.6) Monocytes # (Auto) 0.8 K/uL (0.3-1.0) Eosinophils # (Auto) 0.0 K/uL (0.0-0.5) Basophils # (Auto) 0.1 K/uL (0.0-0.1) Nucleated RBC Absolute Count (auto) 0.00 K/uL Sodium Level 138 mmol/L (137-145) Potassium Level 3.1 mmol/L (3.5-5.0) Chloride Level 104 mmol/L (98-107) Carbon Dioxide Level 21 mmol/L (22-30) Blood Urea Nitrogen 8 mg/dl (9-21) Creatinine 0.60 mg/dl (0.66-1.25) Glomerular Filtration Rate Calc > 60.0 Random Glucose 101 mg/dl (75-110) Calcium Level 9.3 mg/dl (8.4-10.2) Magnesium Level 1.5 mg/dl (1.7-2.2) Total Bilirubin 0.8 mg/dl (0.2-1.3) Aspartate Amino Transf (AST/SGOT) 71 U/L (0-35) Alanine Aminotransferase (ALT/SGPT) 96 U/L (0-56) Alkaline Phosphatase 86 U/L (0-126) Total Protein 7.4 g/dl (6.3-8.2) Albumin 4.6 g/dl (3.5-5.0) Salicylates Level < 10 mg/L Salicylate Last Dose Date unk Acetaminophen Level < 10 ug/ml Serum Alcohol < 10 mg/dl Chemistry Test 07/28/18 05:52 07/28/18 06:03 Urine Color Yellow Urine Clarity Clear Urine pH 6.0 pH (4.8-9.5) Urine Specific [place] 1.014 Urine Protein Negative mg/dL (NEGATIVE) Urine Glucose (UA) Negative mg/dL (NEGATIVE) Urine Ketones 20 mg/dL (NEGATIVE) Urine Blood Negative (NEGATIVE) Urine Nitrite Negative (NEGATIVE) Urine Bilirubin Negative (NEGATIVE) Urine Urobilinogen Negative mg/dL (0.2-1.9) Urine Leukocyte Esterase Negative (NEGATIVE) Urine RBC <1 /HPF (0-2/HPF) Urine WBC 1 /HPF (0-5/HPF) Urine Squamous Epithelial Cells None /LPF (</=FEW) Urine Bacteria Negative /HPF (NONE-FEW) Urine Mucus None /HPF (NONE-FEW) Urine Opiates Screen Negative Urine Barbiturates Screen Negative Ur Tricyclic Antidepressants Screen Negative Urine Phencyclidine Screen Negative Urine Amphetamines Screen Negative Urine Benzodiazepines Screen Negative Urine Cocaine Screen Negative Urine Cannabinoids Screen Negative White Blood Count 8.7 k/uL (4.5-11.0) Red Blood Count 5.49 M/uL (4.00-5.60) Hemoglobin 17.1 g/dL (14.0-18.0) Hematocrit 49.0 % (42.0-52.0) Mean Corpuscular Volume 89.3 fL (80.0-96.0) Mean Corpuscular Hemoglobin 31.2 pg (26.0-33.0) Mean Corpuscular Hemoglobin Concent 34.9 g/dL (32.0-36.0) Red Cell Distribution Width 14.1 % (11.5-14.5) Platelet Count 225 K/uL (150-450) Mean Platelet Volume 7.6 fL (7.2-11.1) Neutrophils (%) (Auto) 69.7 % (39.4-72.5) Lymphocytes (%) (Auto) 20.3 % (17.6-49.6) Monocytes (%) (Auto) 9.0 % (4.1-12.4) Eosinophils (%) (Auto) 0.2 % (0.4-6.7) Basophils (%) (Auto) 0.8 % (0.3-1.4) Nucleated RBC Relative Count (auto) 0.0 /100WBC Neutrophils # (Auto) 6.1 K/uL (2.0-7.4) Lymphocytes # (Auto) 1.8 K/uL (1.3-3.6) Monocytes # (Auto) 0.8 K/uL (0.3-1.0) Eosinophils # (Auto) 0.0 K/uL (0.0-0.5) Basophils # (Auto) 0.1 K/uL (0.0-0.1) Nucleated RBC Absolute Count (auto) 0.00 K/uL Glomerular Filtration Rate Calc > 60.0 Calcium Level 9.3 mg/dl (8.4-10.2) Magnesium Level 1.5 mg/dl (1.7-2.2) Total Bilirubin 0.8 mg/dl (0.2-1.3) Aspartate Amino Transf (AST/SGOT) 71 U/L (0-35) Alanine Aminotransferase (ALT/SGPT) 96 U/L (0-56) Alkaline Phosphatase 86 U/L (0-126) Total Protein 7.4 g/dl (6.3-8.2) Albumin 4.6 g/dl (3.5-5.0) Salicylates Level < 10 mg/L Salicylate Last Dose Date unk Acetaminophen Level < 10 ug/ml Serum Alcohol < 10 mg/dl Toxicology Test 07/28/18 05:52 07/28/18 06:03 Urine Opiates Screen Negative Urine Barbiturates Screen Negative Ur Tricyclic Antidepressants Screen Negative Urine Phencyclidine Screen Negative Urine Amphetamines Screen Negative Urine Benzodiazepines Screen Negative Urine Cocaine Screen Negative Urine Cannabinoids Screen Negative Salicylates Level < 10 mg/L Salicylate Last Dose Date unk Acetaminophen Level < 10 ug/ml Serum Alcohol < 10 mg/dl Urinalysis Test 07/28/18 05:52 Urine Color Yellow Urine Clarity Clear Urine pH 6.0 pH (4.8-9.5) Urine Specific [place] 1.014 Urine Protein Negative mg/dL (NEGATIVE) Urine Glucose (UA) Negative mg/dL (NEGATIVE) Urine Ketones 20 mg/dL (NEGATIVE) Urine Blood Negative (NEGATIVE) Urine Nitrite Negative (NEGATIVE) Urine Bilirubin Negative (NEGATIVE) Urine Urobilinogen Negative mg/dL (0.2-1.9) Urine Leukocyte Esterase Negative (NEGATIVE) Urine RBC <1 /HPF (0-2/HPF) Urine WBC 1 /HPF (0-5/HPF) Urine Squamous Epithelial Cells None /LPF (</=FEW) Urine Bacteria Negative /HPF (NONE-FEW) Urine Mucus None /HPF (NONE-FEW) (ARELY ROLLINS DO) ED Course/Re-evaluation Clinical Indication for ER IV: Hydration, IV Access Decision to Disposition Date: Jul 28, 2018 Decision to Disposition Time: 06:03 (BOBBI DICKERSON DO) ED Course Patient is a 28-year-old male here with depression, suicidal ideation. Patient was evaluated by behavioral health analytical technician, I discussed the patient with Dr. Marcelo who is the psychiatrist on-call who accepted the patient to behavioral health services. Patient was stable at time of admission. Decision to Disposition Date: Jul 28, 2018 Decision to Disposition Time: 07:24 (ARELY ROLLINS DO) Depart Departure Latest Vital Signs Vital Signs Date Time Temp Pulse Resp B/P (MAP) Pulse Ox O2 Delivery O2 Flow Rate FiO2 07/28/18 06:16 83 07/28/18 06:00 146/86 (106) 07/28/18 05:52 98.0 14 96 Room Air (ARELY ROLLINS DO) Impression: Primary Impression: Suicidal ideation Additional Impressions: Schizoaffective disorder, bipolar type Autism spectrum disorder Condition: Improved Disposition: XFER TO [facility] Referrals: NASH DAMON MD (PCP) Problem Qualifiers BOBBI DICKERSON DO Jul 28, 2018 05:50 ARELY ROLLINS DO Jul 28, 2018 06:48
[2018-07-28 06:00] VITALS: BP 146/86
[2018-07-28 06:31] LABS: PLATELET COUNT, AUTOMATED 225 K/uL (150-450)
== END ==
LOC: ER 05:50
DX: R45.851 Suicidal ideations (principal); F20.9 Schizophrenia, unspecified; F31.9 Bipolar disorder, unspecified; F84.0 Autistic disorder
CPT/HCPCS: 36415; 80305; 81001; 83735; 84443; 85025; 99284; G0480; 80320; 80329; 82040; 82247; 82310; 82374; 82435; 82565; 82947; 84075; 84132; 84155; 84295; 84450; 84460; 84520